=== PATIENT | male | born 1990 | race Caucasian/White ===

== ENCOUNTER 2024-04-03 15:57 | Emergency (ER) | payer BC ==
[2024-04-03 16:40] LABS: BASOPHILS ABSOLUTE AUTO 0.08 K/uL (0.00-0.20); BASOPHILS PERCENT AUTO 0.9 % (0.0-1.0); EOSINOPHILS ABSOLUTE AUTO 0.23 K/uL (0.00-0.45); EOSINOPHILS PERCENT AUTO 2.5 % (0.0-6.0); HEMATOCRIT 46.8 % (42.0-52.0); HEMOGLOBIN 16.2 g/dL (14.0-18.0); IMMATURE GRAN ABSOLUTE AUTO 0.03 K/uL (0.00-0.05); IMMATURE GRAN PERCENT AUTO 0.3 % (0.0-0.4); LYMPHOCYTES ABSOLUTE AUTO 2.86 K/uL (1.00-4.80); LYMPHOCYTES PERCENT AUTO 30.7 % (24.0-44.0); MEAN CORPUSCULAR HEMOGLOBIN 29.6 pg (28.0-32.0); MEAN CORPUSCULAR HGB CONC 34.6 g/dL (32.0-36.0); MEAN CORPUSCULAR VOLUME 85.4 fL (83.0-99.0); MEAN PLATELET VOLUME 9.6 fL (9.4-12.4); MONOCYTES ABSOLUTE AUTO 0.73 K/uL (0.00-0.80); MONOCYTES PERCENT AUTO 7.8 % (0.0-8.0); NEUTROPHILS ABSOLUTE AUTO 5.39 K/uL (1.80-7.70); NEUTROPHILS PERCENT AUTO 57.8 % (41.0-71.0); PLATELET COUNT,PLT 308 K/uL (150-400); RED BLOOD CELL COUNT 5.48 M/uL (4.52-5.90); WHITE BLOOD CELL COUNT,WBC 9.32 K/uL (3.9-11.3)
[2024-04-03 17:02] LABS: A/G RATIO 0.8 (0.9-1.6); ALANINE AMINOTRANSFERASE,ALT 27 IU/L (14-63); ALBUMIN 3.7 g/dL (3.4-5.0); ALKALINE PHOSPHATASE 85 U/L (46-116); ASPARTATE AMNIOTRANSFERASE,AST 18 IU/L (15-37); BILIRUBIN TOTAL 0.3 mg/dL (0.2-1.0); BLOOD UREA NITROGEN,BUN 11 mg/dL (7.0-18.0); CALCIUM 9.8 mg/dL (8.5-10.1); CARBON DIOXIDE,CO2 27.8 mmol/L (21.0-32.0); CHLORIDE,CL 101 mmol/L (98-107); CREATININE 0.7 mg/dL (0.8-1.3); GLUCOSE RANDOM 109 mg/dL (74-106); LIPASE 23 U/L (16-77); POTASSIUM,K 4.2 mmol/L (3.5-5.1); PROTEIN TOTAL,TP 8.2 g/dL (6.4-8.2); SODIUM,NA 137 mmol/L (136-148)
[2024-04-03 17:13] LABS: ESTIMATED GFR 124 mL/min (>60)
[2024-04-03] MEDS: Ketorolac 30 MG/ML SDV IVPUSH ONE (17:25)
[2024-04-03] MEDS: Iopamidol 755 MG/ML 500 ML Multipack Bottle IVPUSH STA (17:37)
[2024-04-03] MEDS: Sodium Chloride 0.9% 1,000 ML IV ONE (17:52)
[2024-04-03 18:14] LABS: APPEARANCE,URINE CLEAR; BILIRUBIN,URINE NEGATIVE (NEGATIVE); COLOR,URINE YELLOW; GLUCOSE,URINE NEGATIVE (NEGATIVE); KETONES,URINE NEGATIVE (NEGATIVE); LEUKOCYTE ESTERASE,URINE NEGATIVE (NEGATIVE); NITRITE,URINE NEGATIVE (NEGATIVE); OCCULT BLOOD,URINE NEGATIVE (NEGATIVE); PROTEIN,URINE NEGATIVE (NEGATIVE); UROBILINOGEN,URINE 0.2 EU/dL (<2.0)
== END 2024-04-03 19:21 | disposition home or self-care (01) ==
LOC: MW.ED 15:57
DX: K46.9 Unspecified abdominal hernia without obstruction or gangrene (principal); F17.210 Nicotine dependence, cigarettes, uncomplicated; Z75.8 Other problems related to medical facilities and other health care
CPT/HCPCS: 36415; 74177; 80053; 81003; 83690; 85025; 96361; 96374; 99284; J1885; J7030; Q9967

== ENCOUNTER 2024-05-04 09:06 | Day surgery (SDC) | payer BC ==
[~2024-05-04 09:06] MED LIST: Acetaminophen 1,000 MG in Premix Bag 1 BAG IV SCH; Albuterol 0.083% 2.5 MG/3 ML Neb Soln NEB PRN; HYDROmorphone 1 MG/ML Syringe IVPUSH PRN; Metoclopramide 10 MG/2 ML SDV IVPUSH PRN; Morphine 2 MG/ML SYRINGE IVPUSH PRN; Naloxone 0.4 MG/ML SDV IVPUSH PRN; Ondansetron 4 MG/2 ML SDV IVPUSH PRN; Phenylephrine HCl In 0.9% NaCl 1 MG/10 ML Syringe IVPUSH PRN; ceFAZolin 2 GM in Sodium Chloride 0.9% 50 ML IV ONE; fentaNYL 50 MCG/ML SDV IVPUSH PRN
[2024-05-04] MEDS ORDERED: Propofol 200 MG/20 ML SDV ONE (09:17)
[2024-05-04] MEDS ORDERED: Midazolam 1 MG/ML 2 ML SDV ONE (09:17)
[2024-05-04] MEDS ORDERED: fentaNYL 100 MCG/2 ML SDV ONE (09:17)
[2024-05-04] MEDS ORDERED: Ondansetron 4 MG/2 ML SDV ONE (09:19)
[2024-05-04] MEDS ORDERED: Dexamethasone 4 MG/ML 5 ML MDV ONE (09:19)
[2024-05-04] MEDS ORDERED: Ketorolac 30 MG/ML SDV ONE (09:19)
[2024-05-04] MEDS ORDERED: Lidocaine 2% 5 ML SDV ONE (09:19)
[2024-05-04] MEDS ORDERED: Sugammadex Sodium 200 MG/2 ML VIAL IV ONE (09:20)
[2024-05-04] MEDS ORDERED: Ropivacaine 0.5% 5 MG/ML 30 ML SDV ONE (09:20)
[2024-05-04] MEDS ORDERED: Bupivacaine 0.5% 30 ML SDV ONE (09:24)
[2024-05-04] MEDS: Pregabalin 75 MG Cap PO SCH (09:53)
[2024-05-04] MEDS: Lactated Ringers 1,000 ML IV SCH (09:53)
[2024-05-04] MEDS ORDERED: ceFAZolin 1 GM Vial ONE (10:24)
[2024-05-04] MEDS ORDERED: ceFAZolin 2 GM Vial ONE (10:24)
[2024-05-04] MEDS ORDERED: dexmedeTOMIDine HCl 200 MCG/2 ML SDV ONE (12:44)
== END 2024-05-04 14:55 | disposition home or self-care (01) ==
LOC: MW.SDS 09:06
PROVIDERS: ATTEND Surgery
DX: K42.9 Umbilical hernia without obstruction or gangrene (principal); K43.9 Ventral hernia without obstruction or gangrene; E66.01 Morbid (severe) obesity due to excess calories; F17.290 Nicotine dependence, other tobacco product, uncomplicated; Z79.899 Other long term (current) drug therapy; Z68.41 Body mass index [BMI] 40.0-44.9, adult
CPT/HCPCS: 49591; 64488; A9270; C1781; J0131; J0665; J0690; J1100; J1885; J2250; J2405; J2704; J2795; J3010; J7120; 00752; J2003